=== PATIENT | male | born 1950 | race Caucasian/White ===

== ENCOUNTER 2020-10-22 11:39 | Inpatient (IN) ==
[2020-10-22] MEDS ORDERED: IOPAMIDOL 100 ML BOTTLE IV ONE (11:40)
[2020-10-22] MEDS ORDERED: LEVOFLOXACIN 750 MG/150 ML BAG IV ONE (12:05)
--- NOTE | 2020-10-22 12:17 | Emergency Department Note ---
SOB HPI General Chief Complaint: Shortness of Breath/Dyspnea Stated Complaint: COVID pos/sob/confusion Time Seen by Provider: 10/22/20 11:43 Source: patient and family Mode of arrival: ambulatory Limitations: no limitations History of Present Illness HPI Narrative: Narrative: Presents to room T6 for evaluation of worsening shortness of breath and confusion. The patient started having cough and congestion approximately 11 days ago. 9 days ago the patient had an outpatient Covid test which was positive. The patient has not followed up with his PCP and has had persistent fever with cough and congestion. The patient's notes that today he is been more confused than typical. He also is having increased r espiratory effort. The patient has paroxysmal atrial fibrillation and is currently taking Xarelto. There is no shaking chills or night sweats reported. No chest pain. No nausea or vomiting. The patient does have hemorrhoids and has occasional bright red blood per rectum but there is no worsening of the symptoms and no black stool. no abdominal pain. No skin lesions or rash. Related Data Home Medications Medication Instructions Recorded Confirmed tamsulosin 0.4 mg capsule 0.4 mg PO QDAY cap 10/02/20 10/13/20 Previous Rx's Medication Instructions Recorded diazepam 10 mg tablet 20 mg PO BID PRN #120 tab 05/24/20 metoprolol succinate 25 mg See Rx Instructions .ROUTE 06/26/20 tablet,extended release 24 hr .COMPLEX #60 tab finasteride 5 mg tablet See Rx Instructions .ROUTE 07/17/20 .COMPLEX #90 unknown measurement unit code: tablet escitalopram oxalate 5 mg tablet 5 mg PO QDAY #90 tab 07/23/20 nortriptyline 75 mg capsule 150 mg PO QHS #180 cap 07/30/20 eluxadoline 75 mg tablet 75 mg PO DAILY #180 tab 08/21/20 apixaban 5 mg tablet 5 mg PO BID #180 tab 09/17/20 Allergies Allergy/AdvReac Type Severity Reaction Status Date / Time cefazolin [From [facility]] Allergy Hives Verified 10/22/20 11:47 Review of Systems ROS ROS Narrative: Narrative: All systems ED: reviewed and negative except as stated. PFSH Narrative Patient History Narrative: Narrative: Medical/Surgical/Family History All Active Problems (Updated 10/22/20 @ 15:50 by Juancarlos Garcia MD) COVID-19 (Acute) Pneumonitis (Acute) SIRS (systemic inflammatory response syndrome) (Acute) Exposure to COVID-19 virus (Acute) Raynaud disease (Acute) Pre-ulcerative corn or callous (Acute) Memory loss (Acute) Generalized anxiety disorder (Acute) Conductive hearing loss (Acute) Medicare annual wellness visit, initial (Acute) Left knee pain (Chronic) Allergic rhinitis (Chronic) TMJ dysfunction (Chronic) Obstructive sleep apnea (Chronic) Fatigue (Chronic) BPH w urinary obs/LUTS (Chronic) Shortness of breath (Chronic) Atrial flutter (Chronic) Lumbar strain (Acute) Healthcare maintenance (Chronic) Erectile dysfunction (Chronic) IBS (irritable bowel syndrome) (Chronic ~09/2015) Insomnia (Chronic) Atrial fibrillation (Chronic ~05/2015) Anxiety (Chronic) Medical History Anxiety Atrial fibrillation (~05/2015) Dr. Olivera Erectile dysfunction due to medication Exposure to COVID-19 virus IBS (irritable bowel syndrome) (~09/2015) Shawna BOSWELL Insomnia Medicare annual wellness visit, initial Shortness of breath Surgical History H/O colonoscopy (~08/2015) Dr. Oconnell H/O knee surgery (~2008) History of cataract surgery Family History Mother Arthritis Hypertension, essential Sister Diabetes type I Grandmother Hypertension, essential Paternal Heart attack Paternal Social History Smoking Status: Never smoker Alcohol Intake Frequency: 0-2 drinks per day Substance Use: does not use Exam Narrative Narrative: Narrative: General Limitations: no limitations General appearance: Present alert and in no apparent distress Head Head: Present atraumatic, normocephalic and normal inspection Eye Eye: Present normal appearance and EOMI; Absent conjunctival injection ENT ENT: Present normal exam and mucous membranes moist Neck Neck: Present normal inspection and trachea midline Respiratory Respiratory: Present normal lung sounds bilaterally; Absent respiratory distress Cardiovascular Cardiovascular: Present regular rate, normal rhythm and normal heart sounds Adbominal Abdominal: Present soft; Absent distention, tenderness, guarding and rebound Extremities Extremities: Present normal inspection; Absent tenderness Back Back: Present normal inspection; Absent tenderness Neurological Neurological: Present alert, oriented X3 and CN II-XII intact; Absent motor sensory deficit Psychiatric Psychiatric: Present normal affect and normal mood Skin Skin: Present warm (WNL) and dry; Absent rash Course Vital Signs Vital signs: Vital Signs Temperature 96.9 F L 10/22/20 11:40 Pulse Rate 86 10/22/20 11:40 Respiratory Rate 36 H 10/22/20 11:40 Blood Pressure 128/75 10/22/20 11:40 Pulse Oximetry (%) 97 10/22/20 11:40 Temperature 99.2 F H 10/22/20 14:46 Pulse Rate 88 10/22/20 15:17 Respiratory Rate 25 H 10/22/20 15:17 Blood Pressure 133/69 10/22/20 15:17 Pulse Oximetry (%) 99 10/22/20 15:17 [facility] MDM Narrative Medical decision making narrative: Narrative: Patient presents for evaluation of persistent Covid associated symptoms including shortness of breath cough and now some confusion. Patient's labs do show mild elevation of the creatinine which appears to be chronic. The patient does have low white blood cell count and tachypnea consistent with SIRS. There are no results consistent with end-organ damage. The patient did have a CT scan of the chest which showed bilateral pneumonia consistent with Covid pneumonitis. The patient was given IV antibiotics after blood cultures. The patient is unsteady on his feet when he attempts to ambulate and desaturates with exertion. The patient would benefit from admission. I discussed the case with the hospitalist. He has requested a dose of remdesivir. The patient will be admitted to the hospital. Lab Data Lab results reviewed: Yes I reviewed the patient's lab results. Result diagrams: 10/22/20 12:56 10/22/20 12:56 Labs: Lab Results 10/22/20 10/22/20 10/22/20 Range/Units 12:56 12:56 12:56 WBC 3.2 L (4.5-11.0) K/mcL RBC 4.41 L (4.50-5.90) M/mcL Hgb 13.8 (13.5-16.5) g/dL Hct 40.8 L (41.0-55.0) % MCV 92.5 (80.0-100.0) fL MCH 31.3 (26.0-34.0) pg MCHC 33.8 (31.0-36.0) g/dL RDW 12.7 (11.5-14.5) % Plt Count 120 L (140-440) K/mcL MPV 11.3 H (7.4-10.4) fL Neut % (Auto) 63.5 (38.0-78.0) % Lymph % (Auto) 26.1 (15.0-49.0) % [place] % (Auto) 10.1 (1.0-12.0) % Eos % (Auto) 0.3 (0.0-7.0) % Baso % (Auto) 0 (0.0-2.0) % Lymph # (Auto) 0.83 L (1.50-4.80) K/mcL [place] # (Auto) 0.32 (0.10-0.90) K/mcL Eos # (Auto) 0.01 (0.00-0.70) K/mcL Baso # (Auto) 0 (0.00-0.20) K/mcL Absolute Neutrophils 2.02 (1.80-8.00) K/mcL VBG Lactic Acid 1.2 (0.5-2.0) mmol/L Sodium 134 (133-145) mmol/L Potassium 5.0 (3.3-5.1) mmol/L Chloride 101 (96-108) mmol/L Carbon Dioxide 21 L (22-30) mmol/L Anion Gap 12.0 (8.0-16.0) BUN 22 (8-23) mg/dL Creatinine 1.4 H (0.7-1.2) mg/dL POC Creatinine 1.3 H (0.6-1.2) mg/dL GFR Calculation 51 Glucose 103 (70-105) mg/dL Calcium 8.4 L (8.6-10.4) mg/dL Total Bilirubin 0.4 (0.1-1.0) mg/dL AST 22 (<40) U/L ALT 16 (<40) U/L Alkaline Phosphatase 70 (39-117) U/L Troponin T (<0.03) ng/mL NT-Pro-B Natriuret Pep 86.1 (<125.0) pg/mL Total Protein 6.8 (5.9-8.4) gm/dL Albumin 3.3 (3.2-5.2) gm/dL Globulin 3.5 (2.2-3.7) gm/dL Albumin/Globulin Ratio 0.9 L (1.0-2.3) Urine Color Urine Appearance (Clear) Urine pH (5.0-9.0) Ur Specific [place] (1.000-1.035) Urine Protein (Negative) mg/dL Urine Glucose (UA) (Negative) mg/dL Urine Ketones (Negative) mg/dL Urine Occult Blood (Negative) yusuf/mcL Urine Nitrate (Negative) Urine Bilirubin (Negative) mg/dL Urine Urobilinogen mg/dL Ur Leukocyte Esterase (Negative) /ug Urine RBC (0-3) /hpf Urine WBC (0-4) /hpf Ur Squamous Epith Cells (0-4) /hpf Urine Bacteria (0) /hpf Hyaline Casts (0-2) /lph Urine Mucus (None) /hpf Ur Culture Indicated? 10/22/20 10/22/20 Range/Units 12:56 13:34 WBC (4.5-11.0) K/mcL RBC (4.50-5.90) M/mcL Hgb (13.5-16.5) g/dL Hct (41.0-55.0) % MCV (80.0-100.0) fL MCH (26.0-34.0) pg MCHC (31.0-36.0) g/dL RDW (11.5-14.5) % Plt Count (140-440) K/mcL MPV (7.4-10.4) fL Neut % (Auto) (38.0-78.0) % Lymph % (Auto) (15.0-49.0) % [place] % (Auto) (1.0-12.0) % Eos % (Auto) (0.0-7.0) % Baso % (Auto) (0.0-2.0) % Lymph # (Auto) (1.50-4.80) K/mcL [place] # (Auto) (0.10-0.90) K/mcL Eos # (Auto) (0.00-0.70) K/mcL Baso # (Auto) (0.00-0.20) K/mcL Absolute Neutrophils (1.80-8.00) K/mcL VBG Lactic Acid (0.5-2.0) mmol/L Sodium (133-145) mmol/L Potassium (3.3-5.1) mmol/L Chloride (96-108) mmol/L Carbon Dioxide (22-30) mmol/L Anion Gap (8.0-16.0) BUN (8-23) mg/dL Creatinine (0.7-1.2) mg/dL POC Creatinine (0.6-1.2) mg/dL GFR Calculation Glucose (70-105) mg/dL Calcium (8.6-10.4) mg/dL Total Bilirubin (0.1-1.0) mg/dL AST (<40) U/L ALT (<40) U/L Alkaline Phosphatase (39-117) U/L Troponin T < 0.01 (<0.03) ng/mL NT-Pro-B Natriuret Pep (<125.0) pg/mL Total Protein (5.9-8.4) gm/dL Albumin (3.2-5.2) gm/dL Globulin (2.2-3.7) gm/dL Albumin/Globulin Ratio (1.0-2.3) Urine Color Yellow Urine Appearance Clear (Clear) Urine pH 6.0 (5.0-9.0) Ur Specific [place] 1.025 (1.000-1.035) Urine Protein 30 mg/dl A (Negative) mg/dL Urine Glucose (UA) Negative (Negative) mg/dL Urine Ketones Negative (Negative) mg/dL Urine Occult Blood Negative (Negative) yusuf/mcL Urine Nitrate Negative (Negative) Urine Bilirubin Negative (Negative) mg/dL Urine Urobilinogen Normal mg/dL Ur Leukocyte Esterase Negative (Negative) /ug Urine RBC < 1 (0-3) /hpf Urine WBC 2 (0-4) /hpf Ur Squamous Epith Cells < 1 (0-4) /hpf Urine Bacteria None (0) /hpf Hyaline Casts 3 H (0-2) /lph Urine Mucus Few A (None) /hpf Ur Culture Indicated? No Radiology Data Radiology results reviewed: Yes I reviewed the patient's radiology results. EKG Data EKG #1: EKG attestation: Yes I reviewed and interpreted this EKG. and Yes There are no EKG findings of acute coronary syndrome EKG results narrative: Normal sinus rhythm, rate 84, no nonspecific ST-T wave flattening with undetermined clinical significance, no ectopy Rhythm Strip Data Rhythm Strip Rate: 85 Interpretation: nsr Pulse Oximetry Data Pulse Ox %: 96 Interpretation: normal Discharge Plan Patient/Caregiver Discharge Instructions Pt seen by REHABILITATION MEDICINE PHYSICIAN/PA only: No Clinical Impression: COVID-19, Pneumonitis, SIRS (systemic inflammatory response syndrome) Patient Disposition: Xfer As Inpt ([facility]) Follow up with: Adrian Saini DO [Primary Care Provider] - Prescriptions: No Action diazepam 10 mg tablet 20 mg PO BID PRN (Reason: insomnia) Qty: 120 RF: 5 metoprolol succinate 25 mg tablet extended release 24 hr See Rx Instructions .ROUTE .COMPLEX Qty: 60 RF: 3 finasteride 5 mg tablet See Rx Instructions .ROUTE .COMPLEX Qty: 90 RF: 2 nortriptyline 75 mg capsule 150 mg PO QHS Qty: 180 RF: 1 Viberzi 75 mg tablet 75 mg PO DAILY Qty: 180 RF: 1 Eliquis 5 mg tablet 5 mg PO BID Qty: 180 RF: 1 escitalopram oxalate 5 mg tablet 5 mg PO QDAY Qty: 90 RF: 3 tamsulosin 0.4 mg capsule 0.4 mg PO QDAY RF: 0
[2020-10-22 13:29] LABS: POC Creatinine 1.3 mg/dL (0.6-1.2)
[2020-10-22 14:08] LABS: Basophils # (Auto) 0 K/mcL (0.00-0.20); Basophils % (Auto) 0 % (0.0-2.0); Eosinophils # (Auto) 0.01 K/mcL (0.00-0.70); Eosinophils % (Auto) 0.3 % (0.0-7.0); Hematocrit 40.8 % (41.0-55.0); Hemoglobin 13.8 g/dL (13.5-16.5); Lymphocytes # (Auto) 0.83 K/mcL (1.50-4.80); Lymphocytes % (Auto) 26.1 % (15.0-49.0); Mean Cell Volume 92.5 fL (80.0-100.0); Mean Corpuscular HGB Conc 33.8 g/dL (31.0-36.0); Mean Platelet Volume 11.3 fL (7.4-10.4); Monocytes # (Auto) 0.32 K/mcL (0.10-0.90); Monocytes % (Auto) 10.1 % (1.0-12.0); Neutrophils % (Auto) 63.5 % (38.0-78.0); Platelet Count 120 K/mcL (140-440); RBC 4.41 M/mcL (4.50-5.90); Red Cell Distribution Width 12.7 % (11.5-14.5); WBC 3.2 K/mcL (4.5-11.0)
[2020-10-22 14:13] LABS: proBNP 86.1 pg/mL (<125.0)
[2020-10-22 14:17] LABS: ALT/SGPT 16 U/L (<40); AST/SGOT 22 U/L (<40); Albumin 3.3 gm/dL (3.2-5.2); Albumin/Globulin Ratio 0.9 (1.0-2.3); Alkaline Phosphatase 70 U/L (39-117); Bilirubin,Total 0.4 mg/dL (0.1-1.0); Blood Urea Nitrogen 22 mg/dL (8-23); Calcium 8.4 mg/dL (8.6-10.4); Carbon Dioxide 21 mmol/L (22-30); Chloride 101 mmol/L (96-108); Globulin 3.5 gm/dL (2.2-3.7); Glomerular Filtration Rate 51; Glucose 103 mg/dL (70-105)
--- NOTE | 2020-10-22 14:35 | Cat Scan Report ---
History: Dyspnea , Covid infection TECHNIQUE: The chest was imaged following injection of intravenous nonionic contrast scanning from the thoracic inlet to the diaphragms. Sagittal, coronal and axial MIPS images were created. The radiation exposure was limited using dose reduction technology. FINDINGS: There are moderate diffuse infiltrates throughout both lungs. This has a random fusion with zones of groundglass opacification. There are also linear bands of atelectasis. No lobar consolidation is present. There is no pleural effusion. No abnormally enlarged lymph nodes are present. The central airways are normal. The heart is normal in size and contour. The pulmonary arteries are normal without evidence of pulmonary emboli. IMPRESSION: Moderate bilateral pneumonia. The pattern is consistent with Covid pneumonia Dr. Garcia was called with the report Interpreted and Authenticated by: Billy Jennings 10/22/20
[2020-10-22 15:11] LABS: Appearance,Urine Clear (Clear); Bilirubin,Urine Negative (Negative); Color,Urine Yellow; Culture Indicated,Urine No; Glucose,Urine (UA) Negative (Negative); Ketones,Urine Negative (Negative); Leukocyte Esterase,Urine Negative /ug (Negative); Mucus,Urine FEW /hpf; Nitrate,Urine Negative (Negative); Specific Gravity,Urine 1.025 (1.000-1.035); Urine Blood Negative ery/mcL (Negative); Urine Hyaline Cast 3 /lph (0-2); Urine RBC < 1 /hpf (0-3); Urine Squamous Epithelial Cell < 1 /hpf (0-4); Urine WBC 2 /hpf (0-4); Urobilinogen,Urine Normal
[2020-10-22] MEDS ORDERED: DEXAMETHASONE 10 MG/ML VIAL IV ONE (15:46)
--- NOTE | 2020-10-22 15:54 | Internal Med History&Physical ---
HPI History of Present Illness Patient information: Note initiated : 10/22/20 at 3:54 pm Service Date, if different from initiated Date: [] Patient: Junior Faith a 70 y/o M admitted on for COVID pos/sob/confusion. Chief Complaint: Shortness of breath/confusion History of present illness: Mr. Faith is a 70 year old M with history of A. fib on anticoagulation/HTN/BPH who presents to the ER with increasing weakness/confusion over the last week. Patient was recently diagnosed with Covid and has been self quarantining at home. During that time patient has had increasing weakness fatigue shortness of breath and persistent fever. He has associated upper respiratory symptoms along with chest congestion. For the last 24 hours he has gotten increasingly confused and lethargic. With increasing concerns he was brought into the ER for evaluation. Initial work-up was consistent with multifocal chest infiltrates suggestive of COVID-19 pneumonia. COVID-19 test positive. Patient was started on antibiotics/remdesivir and dexamethasone. Subsequently hospitalist service consulted. Patient was also hypoxic requiring 2 L of oxygen At the time of my evaluation patient is only oriented to self. He is pleasant and does not seem to apparent distress. He is currently on 2 L oxygen. He could not provide me meaningful history and is very confused and disoriented. Most of the history was obtained from review of medical records and ER physic zenaida. Review of systems Could not perform due to patient mental status PFSH PFSH All Active Problems (Updated 10/22/20 @ 15:50 by Juancarlos Garcia MD) COVID-19 (Acute) Pneumonitis (Acute) SIRS (systemic inflammatory response syndrome) (Acute) Exposure to COVID-19 virus (Acute) Raynaud disease (Acute) Pre-ulcerative corn or callous (Acute) Memory loss (Acute) Generalized anxiety disorder (Acute) Conductive hearing loss (Acute) Medicare annual wellness visit, initial (Acute) Left knee pain (Chronic) Allergic rhinitis (Chronic) TMJ dysfunction (Chronic) Obstructive sleep apnea (Chronic) Fatigue (Chronic) BPH w urinary obs/LUTS (Chronic) Shortness of breath (Chronic) Atrial flutter (Chronic) Lumbar strain (Acute) Healthcare maintenance (Chronic) Erectile dysfunction (Chronic) IBS (irritable bowel syndrome) (Chronic ~09/2015) Insomnia (Chronic) Atrial fibrillation (Chronic ~05/2015) Anxiety (Chronic) Medical History Anxiety Atrial fibrillation (~05/2015) Dr. Olivera Erectile dysfunction due to medication Exposure to COVID-19 virus IBS (irritable bowel syndrome) (~09/2015) Shawna BOSWELL Insomnia Medicare annual wellness visit, initial Shortness of breath Surgical History H/O colonoscopy (~08/2015) Dr. Oconnell H/O knee surgery (~2008) History of cataract surgery Family History Mother Arthritis Hypertension, essential Sister Diabetes type I Grandmother Hypertension, essential Paternal Heart attack Paternal Social History marital status: smoking status: Never smoker alcohol intake frequency: 0-2 drinks per day substance use type: does not use MEDS/ALLERGIES Home Medications and Allergies Home Medications Medication Instructions Recorded Confirmed Type metoprolol succinate 25 mg See Rx Instructions .ROUTE 06/26/20 10/22/20 Rx tablet,extended release 24 hr .COMPLEX #60 tab finasteride 5 mg tablet See Rx Instructions .ROUTE 07/17/20 10/22/20 Rx .COMPLEX #90 unknown measurement unit code: tablet nortriptyline 75 mg capsule 150 mg PO QHS #180 cap 07/30/20 10/22/20 Rx apixaban 5 mg tablet 5 mg PO BID #180 tab 09/17/20 10/22/20 Rx tamsulosin 0.4 mg capsule 0.4 mg PO QDAY cap 10/02/20 10/22/20 History diazepam 10 mg PO QHS 10/22/20 10/22/20 History eluxadoline [Viberzi] 37.5 mg PO DAILY 10/22/20 10/22/20 History escitalopram oxalate 5 mg PO HS 10/22/20 10/22/20 History Allergies Allergy/AdvReac Type Severity Reaction Status Date / Time cefazolin [From [facility]] Allergy Mild Hives Verified 10/22/20 16:04 EXAM Constitutional Vitals: Temp Pulse Resp BP Pulse Ox 97 F 88 28 H 133/73 97 10/22/20 15:30 10/22/20 15:44 10/22/20 15:44 10/22/20 15:44 10/22/20 15:44 Confused Head normocephalic Oral cavity moist No visible ear nose discharge Eye movement symmetrical Neck supple no no visible masses S1-S2 telemetry regular tachycardia Rapid shallow breathing around 28 a minute Nondistended abdomen Lower extremity bilateral mottling noted but no cyanosis clubbing or joint swelling Skin no visible suspicious lesion Psych anxious and confused Neuro could not be performed. DATA Data Completed and Pending Labs: Labs from last 24 hours 10/22/20 10/22/20 10/22/20 13:34 12:56 12:56 WBC RBC Hgb Hct MCV MCH MCHC RDW Plt Count MPV Neut % (Auto) Lymph % (Auto) [place] % (Auto) Eos % (Auto) Baso % (Auto) Lymph # (Auto) [place] # (Auto) Eos # (Auto) Baso # (Auto) Absolute Neutrophils VBG Lactic Acid 1.2 Sodium Potassium Chloride Carbon Dioxide Anion Gap BUN Creatinine POC Creatinine GFR Calculation Glucose Calcium Total Bilirubin AST ALT Alkaline Phosphatase Troponin T < 0.01 NT-Pro-B Natriuret Pep Total Protein Albumin Globulin Albumin/Globulin Ratio Urine Color Yellow Urine Appearance Clear Urine pH 6.0 Ur Specific [place] 1.025 Urine Protein 30 mg/dl A Urine Glucose (UA) Negative Urine Ketones Negative Urine Occult Blood Negative Urine Nitrate Negative Urine Bilirubin Negative Urine Urobilinogen Normal Ur Leukocyte Esterase Negative Urine RBC < 1 Urine WBC 2 Ur Squamous Epith Cells < 1 Urine Bacteria None Hyaline Casts 3 H Urine Mucus Few A Ur Culture Indicated? No 10/22/20 10/22/20 12:56 12:56 WBC 3.2 L RBC 4.41 L Hgb 13.8 Hct 40.8 L MCV 92.5 MCH 31.3 MCHC 33.8 RDW 12.7 Plt Count 120 L MPV 11.3 H Neut % (Auto) 63.5 Lymph % (Auto) 26.1 [place] % (Auto) 10.1 Eos % (Auto) 0.3 Baso % (Auto) 0 Lymph # (Auto) 0.83 L [place] # (Auto) 0.32 Eos # (Auto) 0.01 Baso # (Auto) 0 Absolute Neutrophils 2.02 VBG Lactic Acid Sodium 134 Potassium 5.0 Chloride 101 Carbon Dioxide 21 L Anion Gap 12.0 BUN 22 Creatinine 1.4 H POC Creatinine 1.3 H GFR Calculation 51 Glucose 103 Calcium 8.4 L Total Bilirubin 0.4 AST 22 ALT 16 Alkaline Phosphatase 70 Troponin T NT-Pro-B Natriuret Pep 86.1 Total Protein 6.8 Albumin 3.3 Globulin 3.5 Albumin/Globulin Ratio 0.9 L Urine Color Urine Appearance Urine pH Ur Specific [place] Urine Protein Urine Glucose (UA) Urine Ketones Urine Occult Blood Urine Nitrate Urine Bilirubin Urine Urobilinogen Ur Leukocyte Esterase Urine RBC Urine WBC Ur Squamous Epith Cells Urine Bacteria Hyaline Casts Urine Mucus Ur Culture Indicated? A/P Narrative A/P Narrative: * COVID-19 pneumonia-PCU admission/initiate remdesivir/dexamethasone, thrombosis prophylaxis(on apixaban)/coag and inflammatory markers, maintain COVID-19 precautions * Acute hypoxic respiratory failure secondary to Covid pneumonia. Continue with low flow oxygen/pulmonary toilet and transition to noninvasive mechanical ventilation if deteriorating status/worsening oxygenation on ABG/interval chest imaging * History of hypertension continue home medications * History of atrial fibrillation current rate controlled. Continue metoprolol. * BPH continue finasteride/tamsulosin * Anxiety disorder continue diazepam/escitalopram/nortriptyline * prophylaxis apixaban Plan * Inpatient PCU admission * Continue low-flow oxygen, noninvasive mechanical ventilation if worsening Covid pneumonia/respiratory status * Serial imaging/ABG/coag inflammatory markers * Remdesivir/dexamethasone/empiric Levaquin/thrombosis prophylaxis * Pre-existing medical condition management home meds * Directed therapies/nutrition support/early mobilization * Discharge planning Time Spent With Patient Time: Total time spent is greater than 50% in coordination of care (as documented) at patient's floor/unit and/or counseling patient:
[2020-10-22] MEDS ORDERED: REMDESIVIR 200 MG in 0.9 % SODIUM CHLORIDE 250 ML IV ONE ×2 (15:58→17:10)
[2020-10-22] MEDS ORDERED: MELATONIN 3 MG TABLET PO PRN (17:10)
[2020-10-22] MEDS ORDERED: cefTRIAXone 2 GM in DEXTROSE 5% IN WATER 50 ML IV SCH (17:10)
[2020-10-22] MEDS ORDERED: POLYETHYLENE GLYCOL 3350 17 GM PACKET PO PRN (17:10)
[2020-10-22] MEDS ORDERED: MAGNESIUM SULFATE 2 GM/50 ML BAG IV PRN (17:10)
[2020-10-22] MEDS ORDERED: ACETAMINOPHEN 650 MG/65 ML BAG IV PRN (17:10)
[2020-10-22] MEDS ORDERED: ONDANSETRON 4 MG ODT TABLET SL PRN (17:10)
[2020-10-22] MEDS ORDERED: ACETAMINOPHEN 325 MG TABLET PO PRN (17:10)
[2020-10-22] MEDS ORDERED: METOPROLOL TARTRATE 5 MG/5 ML VIAL IV PRN (17:10)
[2020-10-22] MEDS ORDERED: BISACODYL 10 MG SUPP.RECT PR PRN (17:10)
[2020-10-22] MEDS ORDERED: ALBUTEROL SULFATE 200 PUFF INHALER INH PRN (17:10)
[2020-10-22] MEDS ORDERED: POTASSIUM CHLORIDE 40 MEQ in DEXTROSE 5% IN WATER 500 ML IV PRN (17:10)
[2020-10-22] MEDS ORDERED: AZITHROMYCIN 500 MG in DEXTROSE 5% IN WATER 250 ML IV SCH (17:10)
[2020-10-22] MEDS ORDERED: ONDANSETRON 4 MG/2 ML VIAL IV PRN (17:10)
[2020-10-22] MEDS ORDERED: NEUTRA PHOS 1 PACKET PO PRN (17:10)
[2020-10-22 17:56] LABS: Ferritin 736.3 ng/mL (30.0-400.0)
[2020-10-22 18:11] LABS: C-Reactive Protein 12.1 mg/dL (0.03-0.80)
[2020-10-22] MEDS ORDERED: SENNOSIDES/DOCUSATE SODIUM 1 TAB TABLET PO SCH (21:00)
[2020-10-22] MEDS: 0.9 % SODIUM CHLORIDE 10 ML SYRINGE IV SCH (21:45)
[2020-10-22] MEDS: DOCUSATE SODIUM 100 MG CAPSULE PO SCH (21:45)
[2020-10-23] MEDS: 0.9 % SODIUM CHLORIDE 10 ML SYRINGE IV SCH ×3 (05:58→20:53)
[2020-10-23 08:03] LABS: Basophils # (Auto) 0 K/mcL (0.00-0.20); Basophils % (Auto) 0 % (0.0-2.0); Eosinophils # (Auto) 0 K/mcL (0.00-0.70); Eosinophils % (Auto) 0 % (0.0-7.0); Hematocrit 39.4 % (41.0-55.0); Hemoglobin 13.4 g/dL (13.5-16.5); Lymphocytes # (Auto) 0.56 K/mcL (1.50-4.80); Mean Cell Volume 92.9 fL (80.0-100.0); Mean Platelet Volume 10.8 fL (7.4-10.4); Monocytes # (Auto) 0.29 K/mcL (0.10-0.90); Monocytes % (Auto) 12.9 % (1.0-12.0); Neutrophils % (Auto) 62.1 % (38.0-78.0); Platelet Count 133 K/mcL (140-440); RBC 4.24 M/mcL (4.50-5.90); Red Cell Distribution Width 12.6 % (11.5-14.5); WBC 2.2 K/mcL (4.5-11.0)
[2020-10-23 08:25] LABS: ALT/SGPT 13 U/L (<40); AST/SGOT 18 U/L (<40); Albumin 3.4 gm/dL (3.2-5.2); Alkaline Phosphatase 70 U/L (39-117); Bilirubin,Direct < 0.2 mg/dL (0-0.3); Bilirubin,Total 0.3 mg/dL (0.1-1.0); Blood Urea Nitrogen 26 mg/dL (8-23); Calcium 8.5 mg/dL (8.6-10.4); Carbon Dioxide 23 mmol/L (22-30); Chloride 102 mmol/L (96-108); Globulin 3.4 gm/dL (2.2-3.7); Glomerular Filtration Rate 61; Glucose 134 mg/dL (70-105); Lactate Dehydrogenase 286 U/L (135-225); Phosphorous 2.4 mg/dL (2.5-4.5); Triglycerides 91 mg/dL (<150); Uric Acid 6.9 mg/dL (2.5-8.0)
[2020-10-23] MEDS ORDERED: MULTIVIT,THER IRON,CA,FA & MIN 1 TABLET PO SCH (09:00)
[2020-10-23] MEDS ORDERED: LEVOFLOXACIN 750 MG/150 ML BAG IV SCH (09:00)
[2020-10-23] MEDS ORDERED: DEXAMETHASONE 4 MG TABLET PO SCH (09:00)
[2020-10-23] MEDS: DOCUSATE SODIUM 100 MG CAPSULE PO SCH ×2 (09:27→20:53)
--- NOTE | 2020-10-23 10:25 | Internal Med Progress Note ---
SUBJECTIVE Subjective Patient information: Note initiated : 10/23/20 at 10:23 am Service Date, if different from initiated Date: [] Patient: Junior Faith 70 y/o M admitted on 10/22/20 for COVID pos/s ob/confusion. Chief Complaint: [] Interval history: Mr. Faith is a 70 year old M with history of A. fib on anticoagulation/HTN/BPH who presents to the ER with increasing weakness/confusion over the last week. Patient was recently diagnosed with Covid and has been self quarantining at home. During that time patient has had increasing weakness fatigue shortness of breath and persistent fever. He has associated upper respiratory symptoms along with chest congestion. For the last 24 hours he has gotten increasingly confused and lethargic. With increasing concerns he was brought into the ER for evaluation. Initial work-up was consistent with multifocal chest infiltrates suggestive of COVID-19 pneumonia. COVID-19 test positive. Patient was started on antibiotics/remdesivir and dexamethasone. Subsequently hospitalist service consulted. Patient was also hypoxic requiring 2 L of oxygen At the time of my evaluation patient is only oriented to self. He is pleasant and does not seem to apparent distress. He is currently on 2 L oxygen. He could not provide me meaningful history and is very confused and disoriented. Most of the history was obtained from review of medical records and ER physician. 10/23-patient doing better since admission. More lucid and alert. Hemodynamic stable. On supportive management/remdesivir/dexamethasone and antibiotic coverage. Improved hypoxia now on room air. Restart home medications. transfer to medical floor Constitutional Vitals: Vital Signs Temp Pulse Resp BP Pulse Ox 96.9 F L 104 H 22 126/45 94 10/23/20 08:00 10/22/20 17:35 10/23/20 10:01 10/23/20 10:01 10/23/20 10:01 Period Temp Pulse Resp BP Sys/Claire Pulse Ox Last 24 Hr 96.9 F-99.2 F 81-104 14-44 96-185/45-153 87-99 Intake and Output 10/22/20 10/23/20 10/23/20 21:59 05:59 13:59 Intake Total 400 Output Total 301 625 Balance 99 -625 Weight 103.102 kg confused Non labored breathing No telemetry events On room air Intake & Output: Intake & Output 10/22/20 10/23/20 10/23/20 21:59 05:59 13:59 Intake Total 400 Output Total 301 625 Balance 99 -625 Weight 103.102 kg Intake: IV 400 Veklury 200 mg In Sodium 250 Chloride 0.9% 250 ml @ 500 mls/ hr IV ONCE ONE Rx#:[id number] Output: Urine Catheter Amount 300 Void Amount 625 # of times incontinent of urine 1 Other: Urine Appearance Clear Clear Urine Color Light Surekha Pale Urine Odor Normal # Bowel Movements 1 OBJ DATA Labs CBC & Chem 7: 10/23/20 06:47 10/23/20 06:47 Labs: Abnormal Lab Results 10/23/20 10/23/20 10/22/20 06:47 06:47 17:28 WBC 2.2 L RBC 4.24 L Hgb 13.4 L Hct 39.4 L Plt Count 133 L MPV 10.8 H [place] % (Auto) 12.9 H Lymph # (Auto) 0.56 L Absolute Neutrophils 1.39 L Carbon Dioxide BUN 26 H Creatinine POC Creatinine Glucose 134 H Calcium 8.5 L Phosphorus 2.4 L Ferritin 736.3 H Lactate Dehydrogenase 286 H C-Reactive Protein 12.10 H Albumin/Globulin Ratio Urine Protein Hyaline Casts Urine Mucus 10/22/20 10/22/20 10/22/20 13:34 12:56 12:56 WBC 3.2 L RBC 4.41 L Hgb Hct 40.8 L Plt Count 120 L MPV 11.3 H [place] % (Auto) Lymph # (Auto) 0.83 L Absolute Neutrophils Carbon Dioxide 21 L BUN Creatinine 1.4 H POC Creatinine 1.3 H Glucose Calcium 8.4 L Phosphorus Ferritin Lactate Dehydrogenase C-Reactive Protein Albumin/Globulin Ratio 0.9 L Urine Protein 30 mg/dl A Hyaline Casts 3 H Urine Mucus Few A Meds: Medications Acetaminophen (Acetaminophen 325 Mg Tablet) 650 mg PO Q4-6HP PRN; Protocol PRN Reason: Per Pain Protocol/Fever > 101 Albuterol Sulfate (Albuterol Sulfate 200 Puff Inhaler) 1 - 2 puff INH Q4HP PRN PRN Reason: Shortness Of Breath Bisacodyl (Bisacodyl 10 Mg Supp.Rect) 10 mg [place] Q2-3DAYS PRN PRN Reason: Constipation Dexamethasone (Dexamethasone 4 Mg Tablet) 6 mg PO DAILY BENJI Last Admin: 10/23/20 09:27 Dose: 6 mg Documented by: Docusate Sodium (Docusate Sodium 100 Mg Capsule) 100 mg PO BID [facility] Last Admin: 10/23/20 09:27 Dose: 100 mg Documented by: Potassium Chloride 40 meq/ (Dextrose) 520 mls @ 130 mls/hr IV UD PRN PRN Reason: K+ = or < 3.5 Acetaminophen (Ofirmev) 650 mg in 65 mls @ 130 mls/hr IV Q6HP PRN; Protocol PRN Reason: Per Pain Protocol/Fever > 101 Magnesium Sulfate (Magnesium Sulfate) 2 gm in 50 mls @ 50 mls/hr IV UD PRN PRN Reason: MG = or < 1.7 REMDESIVIR 100 mg/ Sodium (Chloride) 250 mls @ 500 mls/hr IV Q24H [facility] Stop: 10/26/20 16:29 Levofloxacin (Levaquin) 750 mg in 150 mls @ 100 mls/hr IV Q24H [facility] Last Admin: 10/23/20 09:28 Dose: 100 mls/hr Documented by: Iron Carb/Multivit/[place]/Folic Acid (Multivit,Ther Iron,Ca,Fa & Min 1 Tablet) 1 tab PO DAILY [facility] Last Admin: 10/23/20 09:28 Dose: 1 tab Documented by: Melatonin (Melatonin 3 Mg Tablet) 3 mg PO HSP PRN PRN Reason: Insomnia Last Admin: 10/22/20 21:45 Dose: 3 mg Documented by: Metoprolol Tartrate (Metoprolol Tartrate 5 Mg/5 Ml Vial) 5 mg IV Q5M PRN PRN Reason: Heart Rate > 140 bpm Ondansetron HCl (Ondansetron 4 Mg Odt Tablet) 4 mg SL Q4-6HP PRN; Protocol PRN Reason: Nausea And Vomiting Ondansetron HCl (Ondansetron 4 Mg/2 Ml Vial) 4 mg IV Q4-6HP PRN; Protocol PRN Reason: Nausea And Vomiting Polyethylene Glycol (Polyethylene Glycol 3350 17 Gm Packet) 17 gm PO DAILYP PRN PRN Reason: Constipation Potassium/Phosphorus/Sodium (Neutra Phos 1 Packet) 2 packet PO DAILY PRN PRN Reason: PHOS <2.5 Senna/Docusate Sodium (Sennosides/Docusate Sodium 1 Tab Tablet) 1 tab PO HS [facility] Last Admin: 10/22/20 21:45 Dose: 1 tab Documented by: Sodium Chloride (0.9 % Sodium Chloride 10 Ml Syringe) 10 ml IV Q8 [facility] Last Admin: 10/23/20 05:58 Dose: 10 ml Documented by: A/P Narrative A/P Narrative: * COVID-19 pneumonia-clinical improvement noted on remdesivir/dexamethasone, continue thrombosis prophylaxis(on apixaban)/coag and inflammatory markers, maintain COVID-19 precautions * Acute hypoxic respiratory failure secondary to Covid pneumonia. Clinically improving. Now on room air * Acute change in mental status secondary to acute viral syndrome secondary to Covid. Gradual clinical improvement noted. * History of HTN continue home medications * History of atrial fibrillation - Continue rate control on metoprolol. CVA prophylaxis on apixaban * BPH continue finasteride/tamsulosin * Anxiety disorder continue diazepam/escitalopram/nortriptyline * prophylaxis apixaban Plan * Transfer to medical floor * Remdesivir/dexamethasone/empiric Levaquin/thrombosis prophylaxis * Pre-existing medical condition management to continue on home meds * Directed therapies/nutrition support/early mobilization * Discharge planning per case management Time Spent With Patient Time: Total time spent is greater than 50% in coordination of care (as documented) at patient's floor/unit and/or counseling patient: QUALITY VTE Deep Vein Thrombosis/Pulmonary Embolism Present on Admission: No
[2020-10-23] MEDS ORDERED: FINASTERIDE 5 MG TABLET PO SCH (10:30)
[2020-10-23] MEDS ORDERED: METOPROLOL SUCCINATE 25 MG TAB.XL.24H PO SCH ×2 (10:30→21:00)
[2020-10-23] MEDS ORDERED: REMDESIVIR 100 MG in 0.9 % SODIUM CHLORIDE 250 ML IV SCH ×2 (15:45→16:00)
[2020-10-23] MEDS ORDERED: POTASSIUM CHLORIDE 40 MEQ in DEXTROSE 5% IN WATER 500 ML IV PRN ×2 (17:29→18:54)
[2020-10-23] MEDS ORDERED: ACETAMINOPHEN 325 MG TABLET PO PRN ×2 (17:29→18:54)
[2020-10-23] MEDS ORDERED: ALBUTEROL SULFATE 200 PUFF INHALER INH PRN ×2 (17:29→18:54)
[2020-10-23] MEDS ORDERED: ONDANSETRON 4 MG ODT TABLET SL PRN ×2 (17:29→18:54)
[2020-10-23] MEDS ORDERED: METOPROLOL TARTRATE 5 MG/5 ML VIAL IV PRN ×2 (17:29→18:54)
[2020-10-23] MEDS ORDERED: NEUTRA PHOS 1 PACKET PO PRN ×2 (17:29→18:54)
[2020-10-23] MEDS ORDERED: BISACODYL 10 MG SUPP.RECT PR PRN ×2 (17:29→18:54)
[2020-10-23] MEDS ORDERED: MELATONIN 3 MG TABLET PO PRN ×2 (17:29→18:54)
[2020-10-23] MEDS ORDERED: ACETAMINOPHEN 650 MG/65 ML BAG IV PRN ×2 (17:29→18:54)
[2020-10-23] MEDS ORDERED: ONDANSETRON 4 MG/2 ML VIAL IV PRN ×2 (17:29→18:54)
[2020-10-23] MEDS ORDERED: POLYETHYLENE GLYCOL 3350 17 GM PACKET PO PRN ×2 (17:29→18:54)
[2020-10-23] MEDS ORDERED: MAGNESIUM SULFATE 2 GM/50 ML BAG IV PRN ×2 (17:29→18:54)
[2020-10-23] MEDS: SENNOSIDES/DOCUSATE SODIUM 1 TAB TABLET PO SCH (20:52)
[2020-10-23] MEDS: ESCITALOPRAM 10 MG TABLET PO SCH (20:52)
[2020-10-23] MEDS: NORTRIPTYLINE 25 MG CAPSULE PO SCH (20:53)
[2020-10-23] MEDS: DIAZEPAM 10 MG TABLET PO SCH (20:53)
[2020-10-23] MEDS: APIXABAN 5 MG TABLET PO SCH (20:53)
[2020-10-23] MEDS: METOPROLOL SUCCINATE 25 MG TAB.XL.24H PO SCH (20:53)
[2020-10-23] MEDS ORDERED: SENNOSIDES/DOCUSATE SODIUM 1 TAB TABLET PO SCH (21:00)
[2020-10-23] MEDS ORDERED: ESCITALOPRAM 10 MG TABLET PO SCH ×2 (21:00)
[2020-10-23] MEDS ORDERED: DOCUSATE SODIUM 100 MG CAPSULE PO SCH (21:00)
[2020-10-23] MEDS ORDERED: DIAZEPAM 10 MG TABLET PO SCH ×2 (21:00)
[2020-10-23] MEDS ORDERED: APIXABAN 5 MG TABLET PO SCH ×2 (21:00)
[2020-10-23] MEDS ORDERED: NORTRIPTYLINE 25 MG CAPSULE PO SCH ×2 (21:00)
[2020-10-23] MEDS ORDERED: 0.9 % SODIUM CHLORIDE 10 ML SYRINGE IV SCH (22:00)
[2020-10-24] MEDS: 0.9 % SODIUM CHLORIDE 10 ML SYRINGE IV SCH ×4 (05:15→22:18)
[2020-10-24 07:36] LABS: Basophils # (Auto) 0.01 K/mcL (0.00-0.20); Basophils % (Auto) 0.2 % (0.0-2.0); Eosinophils # (Auto) 0 K/mcL (0.00-0.70); Eosinophils % (Auto) 0 % (0.0-7.0); Hematocrit 39.8 % (41.0-55.0); Hemoglobin 13.6 g/dL (13.5-16.5); Lymphocytes # (Auto) 0.84 K/mcL (1.50-4.80); Lymphocytes % (Auto) 16.2 % (15.0-49.0); Mean Cell Volume 94.8 fL (80.0-100.0); Mean Corpuscular HGB Conc 34.2 g/dL (31.0-36.0); Mean Platelet Volume 11.2 fL (7.4-10.4); Monocytes # (Auto) 0.56 K/mcL (0.10-0.90); Monocytes % (Auto) 10.8 % (1.0-12.0); Neutrophils % (Auto) 72.8 % (38.0-78.0); Platelet Count 153 K/mcL (140-440); Red Cell Distribution Width 12.6 % (11.5-14.5); WBC 5.2 K/mcL (4.5-11.0)
--- NOTE | 2020-10-24 07:52 | XRay Report ---
HISTORY: COVID pneumonia FINDINGS: There is a vague haziness in the lung parenchyma bilaterally. This is most apparent around the right lower hilum. Diffuse groundglass alveolar opacities were seen throughout both lungs on the recent CT done on 10/22/20. The infiltrates have improved compared to the prior CT. There is no lobar consolidation. No pleural effusion or adenopathy have developed. The heart size is normal. IMPRESSION: Improving bilateral pneumonia Interpreted and Authenticated by: Billy Jennings 10/24/20
[2020-10-24 07:53] LABS: ALT/SGPT 13 U/L (<40); AST/SGOT 16 U/L (<40); Albumin 3.2 gm/dL (3.2-5.2); Alkaline Phosphatase 63 U/L (39-117); Bilirubin,Direct < 0.2 mg/dL (0-0.3); Bilirubin,Total 0.3 mg/dL (0.1-1.0); Blood Urea Nitrogen 31 mg/dL (8-23); Calcium 8.7 mg/dL (8.6-10.4); Carbon Dioxide 21 mmol/L (22-30); Chloride 105 mmol/L (96-108); Globulin 3.2 gm/dL (2.2-3.7); Glomerular Filtration Rate 61; Glucose 144 mg/dL (70-105); Lactate Dehydrogenase 280 U/L (135-225); Phosphorous 3.2 mg/dL (2.5-4.5); Triglycerides 87 mg/dL (<150); Uric Acid 6.7 mg/dL (2.5-8.0)
[2020-10-24] MEDS ORDERED: DEXAMETHASONE 4 MG TABLET PO SCH (09:00)
[2020-10-24] MEDS ORDERED: FINASTERIDE 5 MG TABLET PO SCH (09:00)
[2020-10-24] MEDS ORDERED: LEVOFLOXACIN 750 MG/150 ML BAG IV SCH (09:00)
[2020-10-24] MEDS ORDERED: TAMSULOSIN 0.4 MG CAPSULE PO SCH ×2 (09:00)
[2020-10-24] MEDS ORDERED: MULTIVIT,THER IRON,CA,FA & MIN 1 TABLET PO SCH (09:00)
[2020-10-24] MEDS ORDERED: ELUXADOLINE 75 MG PO SCH (09:00)
[2020-10-24] MEDS: LEVOFLOXACIN 750 MG/150 ML BAG IV SCH (10:15)
[2020-10-24] MEDS: DEXAMETHASONE 4 MG TABLET PO SCH (10:16)
[2020-10-24] MEDS: APIXABAN 5 MG TABLET PO SCH ×2 (10:16→22:08)
[2020-10-24] MEDS: MULTIVIT,THER IRON,CA,FA & MIN 1 TABLET PO SCH (10:16)
[2020-10-24] MEDS: FINASTERIDE 5 MG TABLET PO SCH (10:16)
[2020-10-24] MEDS: TAMSULOSIN 0.4 MG CAPSULE PO SCH (10:16)
[2020-10-24] MEDS: METOPROLOL SUCCINATE 25 MG TAB.XL.24H PO SCH ×2 (10:16→22:17)
[2020-10-24] MEDS: DOCUSATE SODIUM 100 MG CAPSULE PO SCH ×2 (10:17→21:52)
[2020-10-24] MEDS: ELUXADOLINE 75 MG PO SCH (10:21)
--- NOTE | 2020-10-24 14:56 | Internal Med Progress Note ---
SUBJECTIVE Subjective Patient information: Note initiated : 10/24/20 at 2:53 pm Service Date, if different from initiated Date: [] Patient: Junior Faith 70 y/o M admitted on 10/22/20 for COVID pos/so b/confusion. Chief Complaint: [] Interval history: Mr. Faith is a 70 year old M with history of A. fib on anticoagulation/HTN/BPH who presents to the ER with increasing weakness/confusion over the last week. Patient was recently diagnosed with Covid and has been self quarantining at home. During that time patient has had increasing weakness fatigue shortness of breath and persistent fever. He has associated upper respiratory symptoms along with chest congestion. For the last 24 hours he has gotten increasingly confused and lethargic. With increasing concerns he was brought into the ER for evaluation. Initial work-up was consistent with multifocal chest infiltrates suggestive of COVID-19 pneumonia. COVID-19 test positive. Patient was started on antibiotics/remdesivir and dexamethasone. Subsequently hospitalist service consulted. Patient was also hypoxic requiring 2 L of oxygen At the time of my evaluation patient is only oriented to self. He is pleasant and does not seem to apparent distress. He is currently on 2 L oxygen. He could not provide me meaningful history and is very confused and disoriented. Most of the history was obtained from review of medical records and ER physician. 10/23-patient doing better since admission. More lucid and alert. Hemodynamic stable. On supportive management/remdesivir/dexamethasone and antibiotic coverage. Improved hypoxia now on room air. Restart home medications. transfer to medical floor 10/24-patient on day 3 remdesivir/dexamethasone. Doing well.Interval improvement in chest imaging. Stable hemodynamics, afebrile, creatinine 1.2, LFTs stable. Intermittently confused but much improved since admission. No family at bedside. Tolerating diet and physical therapies. Constitutional Vitals: Vital Signs Temp Pulse Resp BP Pulse Ox 98.1 F 82 16 128/65 95 10/24/20 12:00 10/24/20 12:00 10/24/20 12:00 10/24/20 12:00 10/24/20 12:00 Period Temp Pulse Resp BP Sys/Claire Pulse Ox Last 24 Hr 96.8 F-98.4 F 74-87 16-28 113-140/63-81 91-98 Intake and Output 10/24/20 10/24/20 10/24/20 05:59 13:59 21:59 Intake Total 200 Output Total 200 Balance 0 Weight 106.685 kg Alert and respond to commands Nonlabored breathing Maintaining saturation on room air No lymphedema Disoriented to time Intake & Output: Intake & Output 10/24/20 10/24/20 10/24/20 05:59 13:59 21:59 Intake Total 200 Output Total 200 Balance 0 Weight 106.685 kg Intake: Oral 200 Output: Void Amount 200 Other: Meal Breakfast Percent of Meal Consumed 100% Feeding Ability Independent Urine Appearance Clear Urine Color Dark Yellow Stool Size Large Stool Color Brown Stool Consistency Soft # Bowel Movements 1 OBJ DATA Labs CBC & Chem 7: 10/24/20 06:12 10/24/20 06:12 Labs: Abnormal Lab Results 10/24/20 10/24/20 10/23/20 06:12 06:12 06:47 WBC RBC 4.20 L Hgb Hct 39.8 L Plt Count MPV 11.2 H [place] % (Auto) Lymph # (Auto) 0.84 L Absolute Neutrophils Carbon Dioxide 21 L BUN 31 H 26 H Creatinine POC Creatinine Glucose 144 H 134 H Calcium 8.5 L Phosphorus 2.4 L Ferritin Lactate Dehydrogenase 280 H 286 H C-Reactive Protein Albumin/Globulin Ratio Urine Protein Hyaline Casts Urine Mucus 10/23/20 10/22/20 10/22/20 06:47 17:28 13:34 WBC 2.2 L RBC 4.24 L Hgb 13.4 L Hct 39.4 L Plt Count 133 L MPV 10.8 H [place] % (Auto) 12.9 H Lymph # (Auto) 0.56 L Absolute Neutrophils 1.39 L Carbon Dioxide BUN Creatinine POC Creatinine Glucose Calcium Phosphorus Ferritin 736.3 H Lactate Dehydrogenase C-Reactive Protein 12.10 H Albumin/Globulin Ratio Urine Protein 30 mg/dl A Hyaline Casts 3 H Urine Mucus Few A 10/22/20 10/22/20 12:56 12:56 WBC 3.2 L RBC 4.41 L Hgb Hct 40.8 L Plt Count 120 L MPV 11.3 H [place] % (Auto) Lymph # (Auto) 0.83 L Absolute Neutrophils Carbon Dioxide 21 L BUN Creatinine 1.4 H POC Creatinine 1.3 H Glucose Calcium 8.4 L Phosphorus Ferritin Lactate Dehydrogenase C-Reactive Protein Albumin/Globulin Ratio 0.9 L Urine Protein Hyaline Casts Urine Mucus Meds: Medications Acetaminophen (Acetaminophen 325 Mg Tablet) 650 mg PO Q4-6HP PRN; Protocol PRN Reason: Per Pain Protocol/Fever > 101 Albuterol Sulfate (Albuterol Sulfate 200 Puff Inhaler) 1 - 2 puff INH Q4HP PRN PRN Reason: Shortness Of Breath Apixaban (Apixaban 5 Mg Tablet) 5 mg PO BID [facility] Last Admin: 10/24/20 10:16 Dose: 5 mg Documented by: Bisacodyl (Bisacodyl 10 Mg Supp.Rect) 10 mg [place] Q2-3DAYS PRN PRN Reason: Constipation Dexamethasone (Dexamethasone 4 Mg Tablet) 6 mg PO DAILY [facility] Last Admin: 10/24/20 10:16 Dose: 6 mg Documented by: Diazepam (Diazepam 10 Mg Tablet) 10 mg PO QHS [facility] Last Admin: 10/23/20 20:53 Dose: 10 mg Documented by: Docusate Sodium (Docusate Sodium 100 Mg Capsule) 100 mg PO BID [facility] Last Admin: 10/24/20 10:17 Dose: 100 mg Documented by: Escitalopram Oxalate (Escitalopram 10 Mg Tablet) 5 mg PO HS [facility] Last Admin: 10/23/20 20:52 Dose: 5 mg Documented by: Finasteride (Finasteride 5 Mg Tablet) 5 mg PO DAILY [facility] Last Admin: 10/24/20 10:16 Dose: 5 mg Documented by: Acetaminophen (Ofirmev) 650 mg in 65 mls @ 130 mls/hr IV Q6HP PRN; Protocol PRN Reason: Per Pain Protocol/Fever > 101 Levofloxacin (Levaquin) 750 mg in 150 mls @ 100 mls/hr IV DAILY [facility] Last Admin: 10/24/20 10:15 Dose: 100 mls/hr Documented by: Magnesium Sulfate (Magnesium Sulfate) 2 gm in 50 mls @ 50 mls/hr IV UD PRN PRN Reason: MG = or < 1.7 Potassium Chloride 40 meq/ (Dextrose) 520 mls @ 130 mls/hr IV UD PRN PRN Reason: K+ = or < 3.5 REMDESIVIR 100 mg/ Sodium (Chloride) 250 mls @ 500 mls/hr IV Q24H [facility] Stop: 10/26/20 16:29 Iron Carb/Multivit/Proctologist/Folic Acid (Multivit,Ther Iron,Ca,Fa & Min 1 Tablet) 1 tab PO DAILY [facility] Last Admin: 10/24/20 10:16 Dose: 1 tab Documented by: Melatonin (Melatonin 3 Mg Tablet) 3 mg PO HSP PRN PRN Reason: Insomnia Metoprolol Succinate (Metoprolol Succinate 25 Mg Tab.Xl.24h) 25 mg PO BID [facility] Last Admin: 10/24/20 10:16 Dose: 25 mg Documented by: Metoprolol Tartrate (Metoprolol Tartrate 5 Mg/5 Ml Vial) 5 mg IV Q5M PRN PRN Reason: Heart Rate > 140 bpm Nortriptyline HCl (Nortriptyline 25 Mg Capsule) 150 mg PO [facility] Last Admin: 10/23/20 20:53 Dose: 150 mg Documented by: Ondansetron HCl (Ondansetron 4 Mg Odt Tablet) 4 mg SL Q4-6HP PRN; Protocol PRN Reason: Nausea And Vomiting Ondansetron HCl (Ondansetron 4 Mg/2 Ml Vial) 4 mg IV Q4-6HP PRN; Protocol PRN Reason: Nausea And Vomiting Eluxadoline [Viberzi (] 75 Mg Tablet) [facility] Last Admin: 10/24/20 10:21 Dose: Not Given Documented by: Polyethylene Glycol (Polyethylene Glycol 3350 17 Gm Packet) 17 gm PO DAILYP PRN PRN Reason: Constipation Potassium/Phosphorus/Sodium (Neutra Phos 1 Packet) 2 packet PO DAILYP PRN PRN Reason: PHOS <2.5 Last Admin: 10/23/20 23:12 Dose: 2 packet Documented by: Senna/Docusate Sodium (Sennosides/Docusate Sodium 1 Tab Tablet) 1 tab PO [facility] Last Admin: 10/23/20 20:52 Dose: 1 tab Documented by: Sodium Chloride (0.9 % Sodium Chloride 10 Ml Syringe) 10 ml IV Q8 [facility] Last Admin: 10/24/20 10:15 Dose: 10 ml Documented by: Tamsulosin HCl (Tamsulosin 0.4 Mg Capsule) 0.4 mg PO QDAY [facility] Last Admin: 10/24/20 10:16 Dose: 0.4 mg Documented by: A/P Narrative A/P Narrative: * COVID-19 pneumonia-clinical improvement noted on remdesivir/dexamethasone day 3/5, on thrombosis prophylaxis( apixaban). COVID-19 precautions * Acute hypoxic respiratory failure secondary to Covid pneumonia. Clinically resolved. * Acute change in mental status secondary to acute viral syndrome secondary to Covid. Much improved. Oriented to place and person * History of HTN stable on home medications * History of atrial fibrillation -rate controlled on beta-bill, CVA pro phylaxis on apixaban * BPH continue finasteride/tamsulosin * Anxiety disorder continue diazepam/escitalopram/nortriptyline * prophylaxis apixaban Plan * DC telemetry monitoring * Day 3 remdesivir/dexamethasone/empiric Levaquin/thrombosis prophylaxis * Pre-existing medical condition management to continue on home meds * Directed therapies/nutrition support/early mobilization * Discharge planning per case management likely 48 hours Time Spent With Patient Time: Total time spent is greater than 50% in coordination of care (as documented) at patient's floor/unit and/or counseling patient: QUALITY VTE Deep Vein Thrombosis/Pulmonary Embolism Present on Admission: No
[2020-10-24] MEDS ORDERED: REMDESIVIR 100 MG in 0.9 % SODIUM CHLORIDE 250 ML IV SCH (16:00)
[2020-10-24] MEDS: REMDESIVIR 100 MG in 0.9 % SODIUM CHLORIDE 250 ML IV SCH (17:16)
[2020-10-24] MEDS: SENNOSIDES/DOCUSATE SODIUM 1 TAB TABLET PO SCH (21:52)
[2020-10-24] MEDS: ESCITALOPRAM 10 MG TABLET PO SCH (22:06)
[2020-10-24] MEDS: NORTRIPTYLINE 25 MG CAPSULE PO SCH (22:06)
[2020-10-24] MEDS: DIAZEPAM 10 MG TABLET PO SCH (22:08)
[2020-10-25] MEDS: 0.9 % SODIUM CHLORIDE 10 ML SYRINGE IV SCH ×3 (05:07→20:30)
[2020-10-25] MEDS: ELUXADOLINE 75 MG PO SCH (06:29)
[2020-10-25 07:24] LABS: Basophils # (Auto) 0.01 K/mcL (0.00-0.20); Basophils % (Auto) 0.2 % (0.0-2.0); Eosinophils # (Auto) 0 K/mcL (0.00-0.70); Eosinophils % (Auto) 0 % (0.0-7.0); Hematocrit 39.4 % (41.0-55.0); Hemoglobin 13.2 g/dL (13.5-16.5); Lymphocytes # (Auto) 1.13 K/mcL (1.50-4.80); Mean Cell Volume 96.1 fL (80.0-100.0); Mean Corpuscular HGB Conc 33.5 g/dL (31.0-36.0); Mean Platelet Volume 11.1 fL (7.4-10.4); Monocytes # (Auto) 0.53 K/mcL (0.10-0.90); Monocytes % (Auto) 10.1 % (1.0-12.0); Neutrophils % (Auto) 68.3 % (38.0-78.0); Platelet Count 150 K/mcL (140-440); Red Cell Distribution Width 12.8 % (11.5-14.5); WBC 5.3 K/mcL (4.5-11.0)
[2020-10-25 08:15] LABS: ALT/SGPT 15 U/L (<40); AST/SGOT 17 U/L (<40); Albumin 2.9 gm/dL (3.2-5.2); Albumin/Globulin Ratio 0.9 (1.0-2.3); Alkaline Phosphatase 61 U/L (39-117); Bilirubin,Direct < 0.2 mg/dL (0-0.3); Bilirubin,Total 0.3 mg/dL (0.1-1.0); Blood Urea Nitrogen 32 mg/dL (8-23); Calcium 8.6 mg/dL (8.6-10.4); Carbon Dioxide 22 mmol/L (22-30); Chloride 109 mmol/L (96-108); Globulin 3.1 gm/dL (2.2-3.7); Glomerular Filtration Rate 68; Glucose 125 mg/dL (70-105); Lactate Dehydrogenase 244 U/L (135-225); Phosphorous 3.7 mg/dL (2.5-4.5); Triglycerides 135 mg/dL (<150); Uric Acid 6.1 mg/dL (2.5-8.0)
[2020-10-25 09:37] LABS: Lymphocytes % (Auto) 21.4 % (15.0-49.0)
[2020-10-25] MEDS: DOCUSATE SODIUM 100 MG CAPSULE PO SCH ×2 (10:42→20:28)
[2020-10-25] MEDS: DEXAMETHASONE 4 MG TABLET PO SCH (10:42)
[2020-10-25] MEDS: LEVOFLOXACIN 750 MG/150 ML BAG IV SCH (10:42)
[2020-10-25] MEDS: TAMSULOSIN 0.4 MG CAPSULE PO SCH (10:42)
[2020-10-25] MEDS: METOPROLOL SUCCINATE 25 MG TAB.XL.24H PO SCH ×2 (10:42→20:29)
[2020-10-25] MEDS: APIXABAN 5 MG TABLET PO SCH ×2 (10:42→20:29)
[2020-10-25] MEDS: FINASTERIDE 5 MG TABLET PO SCH (10:43)
[2020-10-25] MEDS: MULTIVIT,THER IRON,CA,FA & MIN 1 TABLET PO SCH (10:43)
--- NOTE | 2020-10-25 13:52 | Internal Med Progress Note ---
SUBJECTIVE Subjective Patient information: Note initiated : 10/25/20 at 1:48 pm Service Date, if different from initiated Date: [] Patient: Junior Faith 70 y/o M admitted on 10/22/20 for COVID pos/so b/confusion. Chief Complaint: [] Interval history: Mr. Faith is a 70 year old M with history of A. fib on anticoagulation/HTN/BPH who presents to the ER with increasing weakness/confusion over the last week. Patient was recently diagnosed with Covid and has been self quarantining at home. During that time patient has had increasing weakness fatigue shortness of breath and persistent fever. He has associated upper respiratory symptoms along with chest congestion. For the last 24 hours he has gotten increasingly confused and lethargic. With increasing concerns he was brought into the ER for evaluation. Initial work-up was consistent with multifocal chest infiltrates suggestive of COVID-19 pneumonia. COVID-19 test positive. Patient was started on antibiotics/remdesivir and dexamethasone. Subsequently hospitalist service consulted. Patient was also hypoxic requiring 2 L of oxygen At the time of my evaluation patient is only oriented to self. He is pleasant and does not seem to apparent distress. He is currently on 2 L oxygen. He could not provide me meaningful history and is very confused and disoriented. Most of the history was obtained from review of medical records and ER physician. 10/23-patient doing better since admission. More lucid and alert. Hemodynamic stable. On supportive management/remdesivir/dexamethasone and antibiotic coverage. Improved hypoxia now on room air. Restart home medications. transfer to medical floor 10/24-patient on day 3 remdesivir/dexamethasone. Doing well.Interval improvement in chest imaging. Stable hemodynamics, afebrile, creatinine 1.2, LFTs stable. Intermittently confused but much improved since admission. No family at bedside. Tolerating diet and physical therapies. 10/25-patient doing well. No overnight events. On room air. On day 4 remdesivir, eating breakfast. No concerns expressed nursing staff. No overnight fever chills. No family at bedside. Ongoing therapies Constitutional Vitals: Vital Signs Temp Pulse Resp BP Pulse Ox 97.4 F 92 H 16 125/67 97 10/25/20 12:42 10/25/20 12:42 10/25/20 12:42 10/25/20 12:42 10/25/20 12:42 Period Temp Pulse Resp BP Sys/Claire Pulse Ox Last 24 Hr 97.2 F-98.1 F 76-92 16-20 121-133/63-80 93-97 Intake and Output 10/24/20 10/25/20 10/25/20 21:59 05:59 13:59 Intake Total 930 400 Output Total 500 Balance 430 400 Weight 103.929 kg Alert oriented Nonlabored breathing Nondistended abdomen No anxiety Intake & Output: Intake & Output 10/24/20 10/25/20 10/25/20 21:59 05:59 13:59 Intake Total 930 400 Output Total 500 Balance 430 400 Weight 103.929 kg Intake: IV 250 Veklury 100 mg In Sodium 250 Chloride 0.9% 250 ml @ 500 mls/ hr IV Q24H [facility] Rx#:[id number] Oral 680 400 Output: Void Amount 500 Other: Urine Appearance Clear Urine Color Dark Yellow OBJ DATA Labs CBC & Chem 7: 10/25/20 05:52 10/25/20 05:52 Labs: Abnormal Lab Results 10/25/20 10/25/20 10/24/20 05:52 05:52 06:12 WBC RBC 4.10 L Hgb 13.2 L Hct 39.4 L Plt Count MPV 11.1 H [place] % (Auto) Lymph # (Auto) 1.13 L Absolute Neutrophils Chloride 109 H Carbon Dioxide 21 L BUN 32 H 31 H Creatinine Glucose 125 H 144 H Calcium Phosphorus Ferritin Lactate Dehydrogenase 244 H 280 H C-Reactive Protein Albumin 2.9 L Albumin/Globulin Ratio 0.9 L Urine Protein Hyaline Casts Urine Mucus 10/24/20 10/23/20 10/23/20 06:12 06:47 06:47 WBC 2.2 L RBC 4.20 L 4.24 L Hgb 13.4 L Hct 39.8 L 39.4 L Plt Count 133 L MPV 11.2 H 10.8 H [place] % (Auto) 12.9 H Lymph # (Auto) 0.84 L 0.56 L Absolute Neutrophils 1.39 L Chloride Carbon Dioxide BUN 26 H Creatinine Glucose 134 H Calcium 8.5 L Phosphorus 2.4 L Ferritin Lactate Dehydrogenase 286 H C-Reactive Protein Albumin Albumin/Globulin Ratio Urine Protein Hyaline Casts Urine Mucus 10/22/20 10/22/20 10/22/20 17:28 13:34 12:56 WBC RBC Hgb Hct Plt Count MPV [place] % (Auto) Lymph # (Auto) Absolute Neutrophils Chloride Carbon Dioxide 21 L BUN Creatinine 1.4 H Glucose Calcium 8.4 L Phosphorus Ferritin 736.3 H Lactate Dehydrogenase C-Reactive Protein 12.10 H Albumin Albumin/Globulin Ratio 0.9 L Urine Protein 30 mg/dl A Hyaline Casts 3 H Urine Mucus Few A 10/22/20 12:56 WBC 3.2 L RBC 4.41 L Hgb Hct 40.8 L Plt Count 120 L MPV 11.3 H [place] % (Auto) Lymph # (Auto) 0.83 L Absolute Neutrophils Chloride Carbon Dioxide BUN Creatinine Glucose Calcium Phosphorus Ferritin Lactate Dehydrogenase C-Reactive Protein Albumin Albumin/Globulin Ratio Urine Protein Hyaline Casts Urine Mucus Meds: Medications Acetaminophen (Acetaminophen 325 Mg Tablet) 650 mg PO Q4-6HP PRN; Protocol PRN Reason: Per Pain Protocol/Fever > 101 Albuterol Sulfate (Albuterol Sulfate 200 Puff Inhaler) 1 - 2 puff INH Q4HP PRN PRN Reason: Shortness Of Breath Apixaban (Apixaban 5 Mg Tablet) 5 mg PO BID [facility] Last Admin: 10/25/20 10:42 Dose: 5 mg Documented by: Bisacodyl (Bisacodyl 10 Mg Supp.Rect) 10 mg WA Q2-3DAYS PRN PRN Reason: Constipation Dexamethasone (Dexamethasone 4 Mg Tablet) 6 mg PO DAILY [facility] Last Admin: 10/25/20 10:42 Dose: 6 mg Documented by: Diazepam (Diazepam 10 Mg Tablet) 10 mg PO QHS [facility] Last Admin: 10/24/20 22:08 Dose: 10 mg Documented by: Docusate Sodium (Docusate Sodium 100 Mg Capsule) 100 mg PO BID [facility] Last Admin: 10/25/20 10:42 Dose: 100 mg Documented by: Escitalopram Oxalate (Escitalopram 10 Mg Tablet) 5 mg PO HS [facility] Last Admin: 10/24/20 22:06 Dose: 5 mg Documented by: Finasteride (Finasteride 5 Mg Tablet) 5 mg PO DAILY [facility] Last Admin: 10/25/20 10:43 Dose: 5 mg Documented by: Acetaminophen (Ofirmev) 650 mg in 65 mls @ 130 mls/hr IV Q6HP PRN; Protocol PRN Reason: Per Pain Protocol/Fever > 101 Levofloxacin (Levaquin) 750 mg in 150 mls @ 100 mls/hr IV DAILY [facility] Last Admin: 10/25/20 10:42 Dose: 100 mls/hr Documented by: Magnesium Sulfate (Magnesium Sulfate) 2 gm in 50 mls @ 50 mls/hr IV UD PRN PRN Reason: MG = or < 1.7 Potassium Chloride 40 meq/ (Dextrose) 520 mls @ 130 mls/hr IV UD PRN PRN Reason: K+ = or < 3.5 REMDESIVIR 100 mg/ Sodium (Chloride) 250 mls @ 500 mls/hr IV Q24H [facility] Stop: 10/26/20 16:29 Last Infusion: 10/24/20 17:46 Dose: Infused Documented by: Iron Carb/Multivit/[place]/Folic Acid (Multivit,Ther Iron,Ca,Fa & Min 1 Tablet) 1 tab PO DAILY [facility] Last Admin: 10/25/20 10:43 Dose: 1 tab Documented by: Melatonin (Melatonin 3 Mg Tablet) 3 mg PO HSP PRN PRN Reason: Insomnia Last Admin: 10/24/20 22:07 Dose: 3 mg Documented by: Metoprolol Succinate (Metoprolol Succinate 25 Mg Tab.Xl.24h) 25 mg PO BID [facility] Last Admin: 10/25/20 10:42 Dose: 25 mg Documented by: Metoprolol Tartrate (Metoprolol Tartrate 5 Mg/5 Ml Vial) 5 mg IV Q5M PRN PRN Reason: Heart Rate > 140 bpm Nortriptyline HCl (Nortriptyline 25 Mg Capsule) 150 mg PO [facility] Last Admin: 10/24/20 22:06 Dose: 150 mg Documented by: Ondansetron HCl (Ondansetron 4 Mg Odt Tablet) 4 mg SL Q4-6HP PRN; Protocol PRN Reason: Nausea And Vomiting Ondansetron HCl (Ondansetron 4 Mg/2 Ml Vial) 4 mg IV Q4-6HP PRN; Protocol PRN Reason: Nausea And Vomiting Eluxadoline [Viberzi (] 75 Mg Tablet) 0.5 dose PO QAC [facility] Last Admin: 10/25/20 06:29 Dose: Not Given Documented by: Polyethylene Glycol (Polyethylene Glycol 3350 17 Gm Packet) 17 gm PO DAILYP PRN PRN Reason: Constipation Potassium/Phosphorus/Sodium (Neutra Phos 1 Packet) 2 packet PO DAILYP PRN PRN Reason: PHOS <2.5 Last Admin: 10/23/20 23:12 Dose: 2 packet Documented by: Senna/Docusate Sodium (Sennosides/Docusate Sodium 1 Tab Tablet) 1 tab PO HS [facility] Last Admin: 10/24/20 21:52 Dose: Not Given Documented by: Sodium Chloride (0.9 % Sodium Chloride 10 Ml Syringe) 10 ml IV Q8 [facility] Last Admin: 10/25/20 13:11 Dose: Not Given Documented by: Tamsulosin HCl (Tamsulosin 0.4 Mg Capsule) 0.4 mg PO QDAY [facility] Last Admin: 10/25/20 10:42 Dose: 0.4 mg Documented by: A/P Narrative A/P Narrative: * COVID-19 pneumonia-clinical improvement noted on remdesivir/dexamethasone day 4/5, continue thrombosis prophylaxis( apixaban). COVID-19 precautions. Anticipate discharge in 24 hours * Acute hypoxic respiratory failure secondary to Covid pneumonia. Clinically resolved now on room air. * Acute change in mental status secondary to acute viral syndrome secondary to Covid. Fully resolved. Back to his baseline * History of HTN stable on home medications * History of atrial fibrillation -rate controlled on beta-bill, CVA prophylaxis on apixaban * BPH continue finasteride/tamsulosin * Anxiety disorder continue diazepam/escitalopram/nortriptyline * prophylaxis apixaban Plan * Day 4 remdesivir/dexamethasone/empiric Levaquin/thrombosis prophylaxis * Pre-existing medical condition management to continue on home meds * Directed therapies/nutrition support/early mobilization * Discharge planning per case management likely 24 hours Time Spent With Patient Time: Total time spent is greater than 50% in coordination of care (as documented) at patient's floor/unit and/or counseling patient: QUALITY VTE Deep Vein Thrombosis/Pulmonary Embolism Present on Admission: No
[2020-10-25] MEDS: REMDESIVIR 100 MG in 0.9 % SODIUM CHLORIDE 250 ML IV SCH (17:21)
[2020-10-25] MEDS: ESCITALOPRAM 10 MG TABLET PO SCH (20:28)
[2020-10-25] MEDS: SENNOSIDES/DOCUSATE SODIUM 1 TAB TABLET PO SCH (20:28)
[2020-10-25] MEDS: DIAZEPAM 10 MG TABLET PO SCH (20:29)
[2020-10-25] MEDS: NORTRIPTYLINE 25 MG CAPSULE PO SCH (20:29)
[2020-10-26] MEDS: 0.9 % SODIUM CHLORIDE 10 ML SYRINGE IV SCH ×2 (04:03→08:08)
[2020-10-26 07:29] LABS: Basophils # (Auto) 0.01 K/mcL (0.00-0.20); Basophils % (Auto) 0.2 % (0.0-2.0); Eosinophils # (Auto) 0 K/mcL (0.00-0.70); Eosinophils % (Auto) 0 % (0.0-7.0); Hematocrit 37.7 % (41.0-55.0); Lymphocytes # (Auto) 1.43 K/mcL (1.50-4.80); Lymphocytes % (Auto) 26.1 % (15.0-49.0); Mean Cell Volume 94.5 fL (80.0-100.0); Mean Corpuscular HGB Conc 34.5 g/dL (31.0-36.0); Mean Platelet Volume 11.1 fL (7.4-10.4); Monocytes # (Auto) 0.62 K/mcL (0.10-0.90); Monocytes % (Auto) 11.3 % (1.0-12.0); Neutrophils % (Auto) 62.4 % (38.0-78.0); Platelet Count 171 K/mcL (140-440); RBC 3.99 M/mcL (4.50-5.90); Red Cell Distribution Width 12.8 % (11.5-14.5); WBC 5.5 K/mcL (4.5-11.0)
[2020-10-26 07:51] LABS: ALT/SGPT 14 U/L (<40); AST/SGOT 16 U/L (<40); Albumin 2.9 gm/dL (3.2-5.2); Alkaline Phosphatase 62 U/L (39-117); Bilirubin,Direct < 0.2 mg/dL (0-0.3); Bilirubin,Total 0.3 mg/dL (0.1-1.0); Blood Urea Nitrogen 28 mg/dL (8-23); Calcium 8.5 mg/dL (8.6-10.4); Carbon Dioxide 20 mmol/L (22-30); Chloride 108 mmol/L (96-108); Glomerular Filtration Rate 61; Glucose 94 mg/dL (70-105); Lactate Dehydrogenase 236 U/L (135-225); Phosphorous 3.2 mg/dL (2.5-4.5); Triglycerides 130 mg/dL (<150); Uric Acid 6.3 mg/dL (2.5-8.0)
[2020-10-26] MEDS: ELUXADOLINE 75 MG PO SCH (08:03)
[2020-10-26] MEDS: DOCUSATE SODIUM 100 MG CAPSULE PO SCH (08:04)
[2020-10-26] MEDS: FINASTERIDE 5 MG TABLET PO SCH (08:05)
[2020-10-26] MEDS: METOPROLOL SUCCINATE 25 MG TAB.XL.24H PO SCH (08:05)
[2020-10-26] MEDS: MULTIVIT,THER IRON,CA,FA & MIN 1 TABLET PO SCH (08:05)
[2020-10-26] MEDS: TAMSULOSIN 0.4 MG CAPSULE PO SCH (08:05)
[2020-10-26] MEDS: DEXAMETHASONE 4 MG TABLET PO SCH (08:05)
[2020-10-26] MEDS: APIXABAN 5 MG TABLET PO SCH (08:05)
[2020-10-26] MEDS: LEVOFLOXACIN 750 MG/150 ML BAG IV SCH (08:08)
[2020-10-26] MEDS: REMDESIVIR 100 MG in 0.9 % SODIUM CHLORIDE 250 ML IV SCH (10:18)
--- NOTE | 2020-10-26 10:59 | Discharge Summary ---
Discharge Provider Provider Patient information: Note initiated : 10/26/20 at 10:56 am Service Date, if different from initiated Date: [] Patient: Junior aFith 70 y/o M admitted on 10/22/20 for COVID pos/sob/confusion. Discharge diagnosis * COVID-19 pneumonia-clinical improvement noted on remdesivir/dexamethasone , continue thrombosis prophylaxis( apixaban). COVID-19 precautions. Discharging home on additional 5 days dexamethasone * Acute hypoxic respiratory failure secondary to Covid pneumonia. Clinically resolved now on room air. * Acute change in mental status secondary to acute viral syndrome secondary to Covid. Fully resolved. Back to his baseline * History of HTN stable on home medications * History of atrial fibrillation -rate controlled on beta-bill, CVA prophylaxis on apixaban * BPH managed on finasteride/tamsulosin * Anxiety disorder managed on diazepam/escitalopram/nortriptyline Brief hospital course Mr. Faith is a 70 year old M with history of A. fib on anticoagulation/HTN/BPH who presents to the ER with increasing weakness/confusion over the last week. Patient was recently diagnosed with Covid and has been self quarantining at home. During that time patient has had increasing weakness fatigue shortness of breath and persistent fever. He has associated upper respiratory symptoms along with chest congestion. For the last 24 hours he has gotten increasingly confused and lethargic. With increasing concerns he was brought into the ER for evaluation. Initial work-up was consistent with multifocal chest infiltrates suggestive of COVID-19 pneumonia. COVID-19 test positive. Patient was started on antib iotics/remdesivir and dexamethasone. Subsequently hospitalist service consulted. Patient was also hypoxic requiring 2 L of oxygen At the time of my evaluation patient is only oriented to self. He is pleasant and does not seem to apparent distress. He is currently on 2 L oxygen. He could not provide me meaningful history and is very confused and disoriented. Most of the history was obtained from review of medical records and ER physician. 10/23-patient doing better since admission. More lucid and alert. Hemodynamic stable. On supportive management/remdesivir/dexamethasone and antibiotic coverage. Improved hypoxia now on room air. Restart home medications. transfer to medical floor 10/24-patient on day 3 remdesivir/dexamethasone. Doing well.Interval improvement in chest imaging. Stable hemodynamics, afebrile, creatinine 1.2, LFTs stable. Intermittently confused but much improved since admission. No family at bedside. Tolerating diet and physical therapies. 10/25-patient doing well. No overnight events. On room air. On day 4 remdesivir, eating breakfast. No concerns expressed nursing staff. No overnight fever chills. No family at bedside. Ongoing therapies 10/26-patient doing well. Pneumonia much improved. Continue additional 5 days dexamethasone. No overnight fever chills. Currently on room air. Mentation at baseline. Discharging home with advised to follow-up with primary care physician. Date of admission: 10/22/20 17:09 Discharge date: 10/26/20 Primary care physician: Adrian Saini, Consults: 10/22/20 15:57 Consult to Physician [CONS] Stat Comment: Consulting Provider: Dionicio Morrissey Reason For Exam: Physician to Consult Discharge Meds Discharge Medications Home Medications metoprolol succinate 25 mg tablet,extended release 24 hr See Rx Instructions .ROUTE .COMPLEX #60 tab 06/26/20 [Rx Confirmed 10/22/20 Last Taken Unknown] finasteride 5 mg tablet See Rx Instructions .ROUTE .COMPLEX #90 unknown measurement unit code: tablet 07/17/20 [Rx Confirmed 10/22/20 Last Taken Unknown] nortriptyline 75 mg capsule 150 mg PO QHS #180 cap 07/30/20 [Rx Confirmed 10/22/20 Last Taken Unknown] apixaban 5 mg tablet 5 mg PO BID #180 tab 09/17/20 [Rx Confirmed 10/22/20 Last Taken Unknown] tamsulosin 0.4 mg capsule 0.4 mg PO QDAY cap 10/02/20 [History Confirmed Last Taken Unknown] Viberzi 37.5 mg PO DAILY 10/22/20 [History Confirmed 10/22/20 Last Taken Unknown] diazepam 10 mg PO QHS 10/22/20 [History Confirmed 10/22/20 Last Taken Unknown] escitalopram oxalate 5 mg PO HS 10/22/20 [History Confirmed 10/22/20 Last Taken Unknown] dexamethasone 6 mg PO DAILY #5 tab 10/26/20 [Rx Last Taken Unknown] COURSE Hospital Course Hospital course: . Discharge diagnosis: COVID-19 pneumonia Time Spent with Patient Time attestation: Total time spent providing and/or coordinating discharge services: EXAM Constitutional Vitals: Temp Pulse Resp BP Pulse Ox 97.9 F 79 18 143/80 97 10/26/20 06:39 10/26/20 06:39 10/26/20 08:00 10/26/20 06:39 10/26/20 06:39 Discharge Data Data Completed and Pending Labs on day of discharge: Labs from last 24 hours 10/26/20 10/26/20 06:13 06:13 WBC 5.5 RBC 3.99 L Hgb 13.0 L Hct 37.7 L MCV 94.5 MCH 32.6 MCHC 34.5 RDW 12.8 Plt Count 171 MPV 11.1 H Neut % (Auto) 62.4 Lymph % (Auto) 26.1 [place] % (Auto) 11.3 Eos % (Auto) 0 Baso % (Auto) 0.2 Lymph # (Auto) 1.43 L [place] # (Auto) 0.62 Eos # (Auto) 0 Baso # (Auto) 0.01 Absolute Neutrophils 3.41 Sodium 139 Potassium 4.1 Chloride 108 Carbon Dioxide 20 L Anion Gap 11.0 BUN 28 H Creatinine 1.2 GFR Calculation 61 Glucose 94 Uric Acid 6.3 Calcium 8.5 L Phosphorus 3.2 Magnesium 2.1 Total Bilirubin 0.3 Direct Bilirubin < 0.2 GGT 49 AST 16 ALT 14 Alkaline Phosphatase 62 Lactate Dehydrogenase 236 H Total Protein 5.9 Albumin 2.9 L Globulin 3.0 Albumin/Globulin Ratio 1.0 Triglycerides 130 Preliminary micro results at discharge 10/22/20 13:28 Blood Culture - Preliminary Blood 10/22/20 12:56 Blood Culture - Preliminary Blood Discharge Plan Patient/Caregiver Discharge Instructions Activity: increase activity as tolerated Diet: Regular Diet Activity Restrictions/Additional Instructions: Follow-up PCP in 5 to 7 days dexamethasone for 5 days Return to ER if worsening fever chills shortness of breath Prescriptions: New dexamethasone 4 mg Tablet 6 mg PO DAILY Qty: 5 RF: 0 Continued metoprolol succinate 25 mg tablet extended release 24 hr See Rx Instructions .ROUTE .COMPLEX Qty: 60 RF: 3 finasteride 5 mg tablet See Rx Instructions .ROUTE .COMPLEX Qty: 90 RF: 2 nortriptyline 75 mg capsule 150 mg PO QHS Qty: 180 RF: 1 Eliquis 5 mg tablet 5 mg PO BID Qty: 180 RF: 1 tamsulosin 0.4 mg capsule 0.4 mg PO QDAY RF: 0 diazepam 10 mg tablet 10 mg PO QHS RF: 0 escitalopram oxalate 5 mg tablet 5 mg PO HS RF: 0 Viberzi 75 mg tablet 37.5 mg PO DAILY RF: 0 Follow Up Plan Follow up with: Adrian Saini DO [Primary Care Provider] - Patient Disposition: Home, Self-Care Rehab Potential: Fair I certify that the patient requires SNF services: No Overall status at discharge: patient is progressing back to baseline Discharge Orders: Discharge Order (Routine); Ordered 10/26/20 Ordered By: Dionicio ASHTON VTE Deep Vein Thrombosis/Pulmonary Embolism Present on Admission: No
== END 2020-10-26 12:07 | disposition home or self-care (01) | DRG 177 ==
LOC: ED 11:39 → ICU 17:09 → MEDSUR 10-23 17:12
PROVIDERS: ADMIT Internal Medicine; ATTEND Internal Medicine